=== PATIENT | male | born 1945 | race Caucasian/White ===

== ENCOUNTER 2019-05-25 15:44 | Inpatient (IN) | payer MEDICARE, OTHER ==
[~2019-05-25] VITALS: Ht 175.3 cm; Wt 101.2 kg
[~2019-05-25 15:44] MED LIST: CHOL100011 PO; HUM100VI6 SC; METF-162 PO; METH500T7 PO; NPH,100V SQ; NPH,100V5 SC; OXYC-302 PO; TAMS-11 PO
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
[2019-05-25] MEDS ORDERED: METH500T7 PO (16:05)
[2019-05-25] MEDS ORDERED: ATOR-2 PO (16:05)
[2019-05-25] MEDS ORDERED: GABA300C10 PO (16:06)
[2019-05-25] MEDS ORDERED: LISI2.5T PO (16:06)
[2019-05-25] MEDS ORDERED: INSU100C5 SQ-INSULIN (16:09)
--- NOTE | 2019-05-25 16:11 | NUR ---
BLOOD SUGAR IN ROUTE 444.
[2019-05-25 16:28] LABS: O2 FLOW ROOM AIR L/min
[2019-05-25] MEDS ORDERED: SODIUM CHLORIDE 0.9% 1,000ML IVBOLUS ONE ×2 (16:30→19:30)
[2019-05-25] MEDS ORDERED: INSULIN REGULAR 100 UNITS/ML, 3ML VIAL IVPush ONE (16:30)
[2019-05-25 16:35] LABS: BASOPHILS # (AUTO) 0.01 x10^3/uL (0-0.1); BASOPHILS % (AUTO) 0 % (0-1); EOSINOPHILS # (AUTO) 0.18 x10^3/uL (0-0.4); EOSINOPHILS % (AUTO) 2 % (1-7); LYMPHOCYTES # (AUTO) 0.99 x10^3/uL (1-3.4); LYMPHOCYTES % (AUTO) 14 % (22-44); MD NO; MEAN CORPUSCULAR HEMOGLOBIN 32.5 pg (27.5-34.5); MEAN CORPUSCULAR HGB CONC 34.1 g/dL (33.2-36.2); MEAN CORPUSCULAR VOLUME 95.3 fL (81-97); MEAN PLATELET VOLUME 7.9 fL (7.4-10.4); MONOCYTES # (AUTO) 0.38 x10^3/uL (0.2-0.8); MONOCYTES % (AUTO) 5 % (2-9); NEUTROPHILS # (AUTO) 5.79 x10^3/uL (1.8-6.8); NEUTROPHILS % (AUTO) 79 % (42-75); PLATELET COUNT 269 x10^3/uL (130-400); RED BLOOD COUNT 5.29 x10^6/uL (4.38-5.82); RED CELL DISTRIBUTION WIDTH 12.2 % (9.4-14.8)
[2019-05-25 16:40] LABS: ALANINE AMINOTRANSFERASE 24 U/L (12-78); ALBUMIN 2.9 g/dL (3.4-5.0); ANION GAP 5 mmol/L (5-15); CALCIUM 8.2 mg/dL (8.5-10.1); CHLORIDE 104 mmol/L (98-107); CREATININE 1.61 mg/dL (0.7-1.3)
[2019-05-25 16:42] LABS: ALKALINE PHOSPHATASE 79 U/L (45-117); BILIRUBIN,TOTAL 0.7 mg/dL (0.2-1.0); TOTAL PROTEIN 6.8 g/dL (6.4-8.2)
[2019-05-25 17:07] LABS: ACETONE, SERUM Negative (Negative)
[2019-05-25] MEDS ORDERED: INSULIN SINGLE DOSE, ER ONE (18:14)
[2019-05-25 18:22] LABS: MICROSCOPIC AUTO
[2019-05-25 18:28] LABS: CULTURE INDICATED? NO
[2019-05-25] MEDS ORDERED: AZITHROMYCIN 500 MG in SODIUM CHLORIDE 0.9% 250 ML IV ONE (18:39)
[2019-05-25] MEDS ORDERED: CEFTRIAXONE PMX 1GM/50ML 50 ML IVPB ONE (19:00)
--- NOTE | 2019-05-25 19:15 | NUR ---
REPORT OF PT FROM PATRICIO SEAY AND ASSUMING CARE OF PT AT THIS TIME.
[2019-05-25] MEDS ORDERED: CEFTRIAXONE PMX 1GM/50ML 50 ML ONE (19:25)
--- NOTE | 2019-05-25 19:25 | NUR ---
BC X 2 VERIFIED. IV ABX INITIATED PER MAY. REPORT OF PT TO PATRICIO VILLARREAL AT THIS TIME.
[2019-05-25] MEDS ORDERED: SODIUM CHLORIDE FLUSH 10ML SYR IVF ONE (19:30)
[2019-05-25] MEDS ORDERED: SODIUM CHLORIDE 0.9% 1,000 ML IV SCH (19:43)
[2019-05-25] MEDS ORDERED: hydrALAzine 20 MG/ML, 1ML IVPush PRN (20:00)
[2019-05-25] MEDS ORDERED: LIDODERM 5% PATCH TD PRN (20:00)
[2019-05-25] MEDS ORDERED: ENALAPRILAT 1.25 MG/ML, 2ML IVPush PRN (20:00)
[2019-05-25] MEDS ORDERED: DOCUSATE 100 MG CAPSULE PO PRN (20:00)
[2019-05-25] MEDS ORDERED: OXYcodone/APAP 5/325MG TABLET PO PRN (20:00)
[2019-05-25] MEDS ORDERED: LABETALOL 5MG/ML, 20ML IVPush PRN (20:00)
[2019-05-25] MEDS ORDERED: POLYETHYLENE GLYCOL 17 GM PACKET PO PRN (20:00)
[2019-05-25] MEDS: HEPARIN 5,000 UNITS/ML, 1ML SQ SCH (20:00)
[2019-05-25] MEDS ORDERED: ONDANSETRON 2MG/ML, 2ML IVPush PRN (20:00)
[2019-05-25] MEDS ORDERED: PROMETHAZINE 25 MG/ML, 1ML IM PRN (20:00)
[2019-05-25] MEDS ORDERED: BISACODYL 10 MG SUPP PR PRN (20:00)
--- NOTE | 2019-05-25 20:00 | NUR ---
PT FAMILY NOTIFIED OF PT FLOOR ASSIGNMENT. PT FAMILY VERBALIZES UNDERSTANDING OF PT ROOM ASSIGNMENT.
[2019-05-25 20:42] VITALS: BP 146/74
[2019-05-25] MEDS ORDERED: INSULIN NPH HUMAN 100 UNIT/ML, 3ML VIAL SQ-INSULIN SCH (21:00)
[2019-05-25] MEDS ORDERED: CEFTRIAXONE PMX 1GM/50ML 50 ML IV SCH (21:00)
[2019-05-25 21:41] LABS: RAPID INFLUENZA A Negative (Negative); RAPID INFLUENZA B Negative (Negative)
[2019-05-25] MEDS: ACETAMINOPHEN 325 MG TABLET PO PRN (21:59)
[2019-05-25] MEDS: DOXYCYCLINE 100 MG in DEXTROSE 5% 250 ML IV SCH (23:05)
[2019-05-25] MEDS: INSULIN LISPRO 100 UNITS/ML, PEN SQ-INSULIN SCH (23:07)
[2019-05-25] MEDS: ATORVASTATIN 80 MG TABLET PO SCH (23:09)
[2019-05-26] MEDS: INSULIN GLARGINE 100 UNITS/ML, PEN SQ-INSULIN SCH ×3 (00:23→22:38)
[2019-05-26 01:01] VITALS: BP 121/68
[2019-05-26] MEDS: HEPARIN 5,000 UNITS/ML, 1ML SQ SCH ×3 (04:00→22:37)
[2019-05-26 05:08] LABS: BASOPHILS # (AUTO) 0.04 x10^3/uL (0-0.1); BASOPHILS % (AUTO) 1 % (0-1); EOSINOPHILS # (AUTO) 0.24 x10^3/uL (0-0.4); EOSINOPHILS % (AUTO) 3 % (1-7); LYMPHOCYTES # (AUTO) 1.58 x10^3/uL (1-3.4); LYMPHOCYTES % (AUTO) 19 % (22-44); MD NO; MEAN CORPUSCULAR HEMOGLOBIN 32.6 pg (27.5-34.5); MEAN CORPUSCULAR HGB CONC 34.1 g/dL (33.2-36.2); MEAN CORPUSCULAR VOLUME 95.6 fL (81-97); MEAN PLATELET VOLUME 8.1 fL (7.4-10.4); MONOCYTES # (AUTO) 0.54 x10^3/uL (0.2-0.8); MONOCYTES % (AUTO) 7 % (2-9); NEUTROPHILS % (AUTO) 71 % (42-75); PLATELET COUNT 256 x10^3/uL (130-400); RED BLOOD COUNT 4.59 x10^6/uL (4.38-5.82); RED CELL DISTRIBUTION WIDTH 12.5 % (9.4-14.8)
[2019-05-26 05:13] LABS: ALBUMIN 2.3 g/dL (3.4-5.0); ANION GAP 6 mmol/L (5-15); CALCIUM 7.6 mg/dL (8.5-10.1); CHLORIDE 108 mmol/L (98-107)
[2019-05-26 05:18] LABS: ALANINE AMINOTRANSFERASE 17 U/L (12-78); ALKALINE PHOSPHATASE 62 U/L (45-117); BILIRUBIN,TOTAL 0.6 mg/dL (0.2-1.0); CREATININE 1.29 mg/dL (0.7-1.3); TOTAL PROTEIN 5.5 g/dL (6.4-8.2)
[2019-05-26] MEDS: GABAPENTIN 300 MG CAPSULE PO SCH (08:11)
[2019-05-26] MEDS: TAMSULOSIN 0.4 MG CAP.ER.24H PO SCH (08:11)
[2019-05-26] MEDS: METHOCARBAMOL 500 MG TABLET PO SCH (08:11)
[2019-05-26] MEDS: INSULIN LISPRO 100 UNITS/ML, PEN SQ-INSULIN SCH ×4 (08:18→22:39)
[2019-05-26] MEDS: DOXYCYCLINE 100 MG in DEXTROSE 5% 250 ML IV SCH ×2 (08:30→22:38)
[2019-05-26] MEDS: ACETAMINOPHEN 325 MG TABLET PO PRN (08:30)
[2019-05-26 09:20] VITALS: BP 107/62
[2019-05-26 14:00] VITALS: BP 110/62
[2019-05-26] MEDS: ATORVASTATIN 80 MG TABLET PO SCH (22:37)
[2019-05-26 22:48] VITALS: BP 148/80
[2019-05-27 02:15] VITALS: BP 144/79
[2019-05-27 06:00] LABS: BASOPHILS # (AUTO) 0.17 x10^3/uL (0-0.1); BASOPHILS % (AUTO) 2 % (0-1); EOSINOPHILS # (AUTO) 0.27 x10^3/uL (0-0.4); EOSINOPHILS % (AUTO) 4 % (1-7); LYMPHOCYTES # (AUTO) 1.78 x10^3/uL (1-3.4); LYMPHOCYTES % (AUTO) 25 % (22-44); MD NO; MEAN CORPUSCULAR HEMOGLOBIN 32.7 pg (27.5-34.5); MEAN CORPUSCULAR HGB CONC 34.2 g/dL (33.2-36.2); MEAN CORPUSCULAR VOLUME 95.6 fL (81-97); MEAN PLATELET VOLUME 7.9 fL (7.4-10.4); MONOCYTES # (AUTO) 0.57 x10^3/uL (0.2-0.8); MONOCYTES % (AUTO) 8 % (2-9); NEUTROPHILS # (AUTO) 4.37 x10^3/uL (1.8-6.8); NEUTROPHILS % (AUTO) 61 % (42-75); PLATELET COUNT 252 x10^3/uL (130-400); RED BLOOD COUNT 4.43 x10^6/uL (4.38-5.82); RED CELL DISTRIBUTION WIDTH 12.5 % (9.4-14.8)
[2019-05-27 06:12] LABS: ANION GAP 5 mmol/L (5-15); CALCIUM 7.5 mg/dL (8.5-10.1); CHLORIDE 108 mmol/L (98-107); CREATININE 1.53 mg/dL (0.7-1.3)
[2019-05-27 06:59] VITALS: BP 126/72
[2019-05-27] MEDS: INSULIN LISPRO 100 UNITS/ML, PEN SQ-INSULIN SCH ×3 (07:00→16:00)
[2019-05-27] MEDS: GABAPENTIN 300 MG CAPSULE PO SCH (07:35)
[2019-05-27] MEDS: TAMSULOSIN 0.4 MG CAP.ER.24H PO SCH (07:35)
[2019-05-27] MEDS: INSULIN GLARGINE 100 UNITS/ML, PEN SQ-INSULIN SCH (07:35)
[2019-05-27] MEDS: METHOCARBAMOL 500 MG TABLET PO SCH (07:35)
[2019-05-27] MEDS: HEPARIN 5,000 UNITS/ML, 1ML SQ SCH ×2 (07:35→15:00)
[2019-05-27] MEDS: DOXYCYCLINE 100 MG in DEXTROSE 5% 250 ML IV SCH (10:01)
[2019-05-27 12:07] VITALS: BP 157/91
== END 2019-05-27 17:28 | disposition home or self-care (01) | DRG 682 ==
LOC: SUATTDRO 19:19 → ED 20:02 → EDIP 20:16 → 3N 20:37
PROVIDERS: ADMIT Internal Medicine; ATTEND Family Medicine
DX: N17.0 Acute kidney failure with tubular necrosis (principal); J18.9 Pneumonia, unspecified organism; G92 Toxic encephalopathy; E87.1 Hypo-osmolality and hyponatremia; E11.40 Type 2 diabetes mellitus with diabetic neuropathy, unspecified; E11.65 Type 2 diabetes mellitus with hyperglycemia; E78.5 Hyperlipidemia, unspecified; F17.210 Nicotine dependence, cigarettes, uncomplicated; F43.10 Post-traumatic stress disorder, unspecified; I44.7 Left bundle-branch block, unspecified; K42.9 Umbilical hernia without obstruction or gangrene; N40.0 Benign prostatic hyperplasia without lower urinary tract symptoms; W18.30XA Fall on same level, unspecified, initial encounter; Z83.3 Family history of diabetes mellitus; Z79.4 Long term (current) use of insulin; Z87.442 Personal history of urinary calculi; Z89.511 Acquired absence of right leg below knee; Y92.89 Other specified places as the place of occurrence of the external cause; Z88.5 Allergy status to narcotic agent
CPT/HCPCS: 36415; 70450; 71045; 80048; 80053; 81001; 82010; 82803; 82962; 83036; 83605; 84145; 85025; 87040; 87400; 87486; 87581; 87633; 87798; 93005; 93306; 96374; G0378; J0696; J1644; J1815; J7060; J7030

== ENCOUNTER 2019-06-15 03:40 | Inpatient (IN) | payer OTHER ==
[~2019-06-15] VITALS: Ht 170.2 cm; Wt 102.3 kg
[2019-06-15] MEDS: SODIUM CHLORIDE 0.9% 1,000 ML IV SCH ×3 (02:25→16:17)
[~2019-06-15 03:40] MED LIST changes: +ATOR-2 PO; +GABA300C10 PO; +INSU100C5 SQ-INSULIN; +LISI2.5T PO
--- NOTE | 2019-06-15 04:12 | NUR ---
C/O N/V/D, PLACED VITALS SIGNS MONITORS, FALL PRECAUTIONS IN PLACE, CALL LIGHT PLACED WITHIN REACH.
--- NOTE | 2019-06-15 04:16 | NUR ---
ERP AT BEDSIDE FOR EVAL.
[2019-06-15] MEDS ORDERED: ONDANSETRON 2MG/ML, 2ML ONE ×3 (04:26→05:44)
[2019-06-15 04:28] LABS: BASOPHILS % (AUTO) 0 % (0-1); EOSINOPHILS # (AUTO) 0.15 x10^3/uL (0-0.4); EOSINOPHILS % (AUTO) 2 % (1-7); LYMPHOCYTES # (AUTO) 1.18 x10^3/uL (1-3.4); LYMPHOCYTES % (AUTO) 12 % (22-44); MD NO; MEAN CORPUSCULAR HEMOGLOBIN 32.6 pg (27.5-34.5); MEAN CORPUSCULAR VOLUME 95.7 fL (81-97); MEAN PLATELET VOLUME 8.4 fL (7.4-10.4); MONOCYTES # (AUTO) 0.54 x10^3/uL (0.2-0.8); MONOCYTES % (AUTO) 6 % (2-9); NEUTROPHILS # (AUTO) 8.02 x10^3/uL (1.8-6.8); NEUTROPHILS % (AUTO) 81 % (42-75); PLATELET COUNT 245 x10^3/uL (130-400); RED CELL DISTRIBUTION WIDTH 12.7 % (9.4-14.8)
[2019-06-15] MEDS ORDERED: SODIUM CHLORIDE 0.9% 1,000ML IVBOLUS ONE ×2 (04:30→05:00)
[2019-06-15] MEDS ORDERED: ONDANSETRON 2MG/ML, 2ML IVPush ONE (04:30)
[2019-06-15] MEDS ORDERED: HYDROmorphone 1 MG/ML, 1ML INJ IVPush PRN (04:30)
[2019-06-15 04:40] LABS: ALANINE AMINOTRANSFERASE 28 U/L (12-78); ANION GAP 6 mmol/L (5-15); CHLORIDE 99 mmol/L (98-107); CREATININE 1.78 mg/dL (0.7-1.3)
--- NOTE | 2019-06-15 04:42 | NUR ---
MEDICATED PER MAR, PT DENIES PAIN AT THIS TIME, TECH AT BEDSIDE FOR EKG.
[2019-06-15 04:45] LABS: ALKALINE PHOSPHATASE 88 U/L (45-117); BILIRUBIN,TOTAL 0.7 mg/dL (0.2-1.0); TOTAL PROTEIN 7.3 g/dL (6.4-8.2)
--- NOTE | 2019-06-15 04:51 | NUR ---
aiyana from lab on telephone with critical lab results troponin 1.59, glucose 529, erp updated
--- NOTE | 2019-06-15 04:53 | NUR ---
pg code cardiac @8355 pg cards @5083
[2019-06-15] MEDS ORDERED: INSULIN SINGLE DOSE, ER ONE (04:57)
[2019-06-15] MEDS ORDERED: ASPIRIN 81 MG TABLET CHEW PO ONE (05:00)
[2019-06-15] MEDS ORDERED: INSULIN REGULAR 100 UNITS/ML, 3ML VIAL IVPush ONE (05:00)
[2019-06-15] MEDS ORDERED: HYDROmorphone 1 MG/ML, 1ML INJ ONE (05:02)
--- NOTE | 2019-06-15 05:15 | NUR ---
ASSUMED CAREOF PT IN T3, CODE CARDIAC CALLED. PT STABLE WITH PAIN MEDS GIVEN NOW, PT WAS CO 25/10 WITH NAUSEA AND VOMITING,, DECREASED WITH PAIN MEDS, ASA GIVEN
--- NOTE | 2019-06-15 05:18 | NUR ---
PT HAS WHEELCHAIR, ONE SHOE,PANTS,SHIRT, TTO GO WITH PT, [facility]LET WE[facility] WITH HOME.
[2019-06-15] MEDS ORDERED: VERAPAMIL 2.5 MG/ML, 2ML ONE (05:29)
[2019-06-15] MEDS ORDERED: MIDAZOLAM 1 MG/ML, 2ML ONE (05:29)
[2019-06-15] MEDS ORDERED: FENTANYL PF 250 MCG/5ML ONE (05:29)
[2019-06-15] MEDS ORDERED: LIDOCAINE-MPF 1%, 5ML ONE (05:30)
[2019-06-15] MEDS ORDERED: BIVALIRUDIN 250 MG ONE (05:30)
[2019-06-15] MEDS ORDERED: HEPARIN 1,000 UNITS/ML, 10ML ONE (05:30)
--- NOTE | 2019-06-15 05:30 | NUR ---
late entry, pt taken to pipelines laborer, all belongings take to [facility] by kaci lopez. bao with to home.
[2019-06-15] MEDS ORDERED: LIDOCAINE 1%, 20ML ONE (05:50)
[2019-06-15] MEDS ORDERED: ASPIRIN 81 MG TABLET CHEW ONE (05:57)
[2019-06-15] MEDS ORDERED: CLOPIDOGREL 300 MG TABLET ONE (06:05)
[2019-06-15] MEDS ORDERED: NALOXONE 0.4 MG/ML, 1ML ONE (06:26)
[2019-06-15] MEDS ORDERED: TICAGRELOR 90 MG TABLET ONE (06:26)
[2019-06-15] MEDS ORDERED: FLUMAZENIL 0.1 MG/1 ML, 5ML ONE (06:26)
[2019-06-15] MEDS ORDERED: BIVALIRUDIN 250 MG in SODIUM CHLORIDE 0.9% 50 ML IV SCH (06:31)
[2019-06-15] MEDS ORDERED: ASPIRIN 325 MG TABLET EC ONE (06:32)
[2019-06-15 06:45] VITALS: BP 120/85
[2019-06-15] MEDS ORDERED: METOPROLOL TARTRATE 25 MG TAB PO ONE (07:00)
[2019-06-15] MEDS: TICAGRELOR 90 MG TABLET PO SCH ×2 (09:59→20:53)
[2019-06-15] MEDS: ASPIRIN 81 MG TABLET EC PO SCH (09:59)
[2019-06-15 15:29] LABS: MICROSCOPIC AUTO
[2019-06-15 15:31] LABS: CULTURE INDICATED? NO
[2019-06-15] MEDS ORDERED: OXYcodone/APAP 5/325MG TABLET ONE (15:37)
[2019-06-15 16:06] LABS: FREE T4 (FREE THYROXINE) 0.83 ng/dL (0.76-1.46)
[2019-06-15] MEDS: INSULIN REGULAR 100 UNITS/ML, 3ML VIAL SQ-INSULIN SCH ×2 (16:16→20:54)
[2019-06-15 17:35] LABS: CREATININE,URINE RANDOM 65.7 mg/dL
[2019-06-15] MEDS: ATORVASTATIN 80 MG TABLET PO SCH (20:53)
[2019-06-15] MEDS ORDERED: INSULIN GLARGINE 100 UNITS/ML, PEN SQ-INSULIN SCH (21:00)
[2019-06-16] MEDS: SODIUM CHLORIDE 0.9% 1,000 ML IV SCH ×2 (00:45→10:25)
[2019-06-16] MEDS: OXYcodone/APAP 5/325MG TABLET PO PRN ×3 (01:16→18:18)
[2019-06-16] MEDS: ONDANSETRON 2MG/ML, 2ML IVPush PRN ×3 (04:26→19:50)
[2019-06-16 04:54] VITALS: BP 115/78
[2019-06-16 05:27] LABS: ANION GAP 8 mmol/L (5-15); CALCIUM 8.7 mg/dL (8.5-10.1); CHLORIDE 110 mmol/L (98-107)
[2019-06-16 05:28] LABS: CREATININE 1.57 mg/dL (0.7-1.3)
[2019-06-16] MEDS ORDERED: LEVOTHYROXINE 50 MCG TABLET ONE (06:23)
[2019-06-16] MEDS: LEVOTHYROXINE 50 MCG TABLET PO SCH (06:25)
[2019-06-16] MEDS: INSULIN REGULAR 100 UNITS/ML, 3ML VIAL SQ-INSULIN SCH ×4 (06:25→20:19)
[2019-06-16] MEDS: TICAGRELOR 90 MG TABLET PO SCH ×2 (08:02→19:50)
[2019-06-16] MEDS: ASPIRIN 81 MG TABLET EC PO SCH (08:03)
[2019-06-16] MEDS: INSULIN GLARGINE 100 UNITS/ML, PEN SQ-INSULIN SCH ×2 (08:39→20:19)
[2019-06-16] MEDS: LOSARTAN 25MG TABLET PO SCH (09:45)
[2019-06-16 10:14] VITALS: BP 115/73
[2019-06-16 16:10] VITALS: BP 116/80
[2019-06-16] MEDS: CEPHALEXIN 500 MG CAPSULE PO SCH (18:17)
[2019-06-16] MEDS: MUPIROCIN OINT 2%, 22GM TP SCH (18:19)
[2019-06-16] MEDS: ATORVASTATIN 80 MG TABLET PO SCH (19:50)
[2019-06-17] MEDS: CEPHALEXIN 500 MG CAPSULE PO SCH ×3 (01:00→18:17)
[2019-06-17 02:24] VITALS: BP 102/68
[2019-06-17] MEDS: OXYcodone/APAP 5/325MG TABLET PO PRN ×2 (03:06→08:11)
[2019-06-17 06:08] LABS: ANION GAP 7 mmol/L (5-15); CALCIUM 8.7 mg/dL (8.5-10.1); CHLORIDE 109 mmol/L (98-107); CREATININE 1.83 mg/dL (0.7-1.3)
[2019-06-17] MEDS: LEVOTHYROXINE 50 MCG TABLET PO SCH (06:24)
[2019-06-17] MEDS: MUPIROCIN OINT 2%, 22GM TP SCH ×5 (06:24→21:13)
[2019-06-17] MEDS: INSULIN REGULAR 100 UNITS/ML, 3ML VIAL SQ-INSULIN SCH ×4 (07:00→21:00)
[2019-06-17] MEDS ORDERED: ROCURONIUM 10MG/ML,5ML ONE (08:00)
[2019-06-17 08:10] VITALS: BP 107/72
[2019-06-17] MEDS: TICAGRELOR 90 MG TABLET PO SCH ×2 (08:11→21:07)
[2019-06-17] MEDS: ASPIRIN 81 MG TABLET EC PO SCH (08:11)
[2019-06-17] MEDS: INSULIN GLARGINE 100 UNITS/ML, PEN SQ-INSULIN SCH ×2 (08:12→21:15)
[2019-06-17] MEDS: LOSARTAN 25MG TABLET PO SCH (08:12)
[2019-06-17] MEDS: CARVEDILOL 3.125 MG TABLET PO SCH ×2 (09:09→18:00)
[2019-06-17] MEDS: ONDANSETRON 2MG/ML, 2ML IVPush PRN (10:35)
[2019-06-17] MEDS ORDERED: FENTANYL PF 100 MCG/2ML ONE (10:55)
[2019-06-17] MEDS ORDERED: MIDAZOLAM 1 MG/ML, 5ML ONE (10:55)
[2019-06-17] MEDS ORDERED: LIDOCAINE-MPF 1%, 5ML ONE (10:56)
[2019-06-17] MEDS ORDERED: BIVALIRUDIN 250 MG ONE (10:56)
[2019-06-17] MEDS ORDERED: TICAGRELOR 90 MG TABLET ONE (10:56)
[2019-06-17] MEDS ORDERED: VERAPAMIL 2.5 MG/ML, 2ML ONE (10:56)
[2019-06-17] MEDS ORDERED: HEPARIN 1,000 UNITS/ML, 10ML ONE (10:56)
[2019-06-17 10:59] LABS: MEAN CORPUSCULAR HEMOGLOBIN 32.8 pg (27.5-34.5); MEAN CORPUSCULAR HGB CONC 33.8 g/dL (33.2-36.2); MEAN CORPUSCULAR VOLUME 96.9 fL (81-97); MEAN PLATELET VOLUME 7.7 fL (7.4-10.4); PLATELET COUNT 239 x10^3/uL (130-400); RED BLOOD COUNT 4.07 x10^6/uL (4.38-5.82)
[2019-06-17] MEDS ORDERED: HYDROmorphone 1 MG/ML, 1ML INJ IV ONE (11:00)
[2019-06-17] MEDS ORDERED: ONDANSETRON 2MG/ML, 2ML IVPush ONE (11:00)
[2019-06-17 11:06] LABS: ANION GAP 5 mmol/L (5-15); CALCIUM 8.4 mg/dL (8.5-10.1); CHLORIDE 108 mmol/L (98-107); CREATININE 2.05 mg/dL (0.7-1.3)
[2019-06-17 11:11] LABS: BASOPHILS # (AUTO) 0.11 x10^3/uL (0-0.1); BASOPHILS % (AUTO) 1 % (0-1); EOSINOPHILS # (AUTO) 0.11 x10^3/uL (0-0.4); EOSINOPHILS % (AUTO) 1 % (1-7); LYMPHOCYTES # (AUTO) 1.01 x10^3/uL (1-3.4); LYMPHOCYTES % (AUTO) 8 % (22-44); MD SCAN; MONOCYTES # (AUTO) 1.18 x10^3/uL (0.2-0.8); MONOCYTES % (AUTO) 10 % (2-9); NEUTROPHILS # (AUTO) 9.87 x10^3/uL (1.8-6.8); NEUTROPHILS % (AUTO) 80 % (42-75)
[2019-06-17] MEDS: PROPOFOL 100 ML IV PRN ×2 (11:30→19:34)
[2019-06-17] MEDS ORDERED: PROPOFOL 100 ML IV ONE ×2 (11:32→15:07)
[2019-06-17] MEDS ORDERED: PHENYLEPHRINE 10 MG/ML ONE ×3 (11:49→11:56)
[2019-06-17] MEDS ORDERED: SUCCINYLCHOLINE 20 MG/ML, 10ML ONE (11:54)
[2019-06-17] MEDS ORDERED: PROPOFOL 10 MG/ML, 20ML ONE (11:54)
[2019-06-17] MEDS: NOREPINEPHRINE 8 MG in SODIUM CHLORIDE 0.9% 242 ML IV PRN (12:52)
[2019-06-17 13:02] LABS: FIO2 100 %
[2019-06-17] MEDS: AMPICILLIN/SULBACTAM 3 GM in SODIUM CHLORIDE 0.9% 100 ML IV SCH ×2 (13:51→21:13)
[2019-06-17] MEDS ORDERED: SENNA/DOCUSATE TABLET NG PRN (14:30)
[2019-06-17] MEDS ORDERED: PHARMACY MAY ADJ FOR RENAL FX MC SCH (14:30)
[2019-06-17] MEDS ORDERED: BISACODYL 10 MG SUPP PR PRN (14:30)
[2019-06-17] MEDS ORDERED: LACTULOSE 20 GM/30 ML UDC NG PRN (14:30)
[2019-06-17] MEDS ORDERED: SENNA 176 MG/5 ML ORAL SOL NG PRN (14:30)
[2019-06-17] MEDS ORDERED: LIDOCAINE-MPF 1%, 2ML ENDO PRN (14:30)
[2019-06-17] MEDS: ALBUTEROL/IPRATROPIUM 2.5MG/0.5MG, 3 ML NPPB SCH ×3 (15:35→23:09)
[2019-06-17] MEDS ORDERED: PROPOFOL 100 ML IV PRN (16:00)
[2019-06-17 18:39] LABS: D-DIMER (DIC) 1.46 ug/mlFEU (0.00-0.52); PROTIME 10.1 Seconds (9.6-11.5)
[2019-06-17] MEDS ORDERED: ACETAMINOPHEN 650 MG/20.3 ML UDC PO PRN (21:00)
[2019-06-17] MEDS: ATORVASTATIN 80 MG TABLET PO SCH (21:07)
[2019-06-18] MEDS: CEPHALEXIN 500 MG CAPSULE PO SCH ×3 (00:51→17:04)
[2019-06-18] MEDS: PROPOFOL 100 ML IV PRN (01:03)
[2019-06-18] MEDS: INSULIN REGULAR 100 UNITS/ML, 3ML VIAL SQ-INSULIN SCH ×5 (03:00→21:00)
[2019-06-18] MEDS: ALBUTEROL/IPRATROPIUM 2.5MG/0.5MG, 3 ML NPPB SCH (03:09)
[2019-06-18 03:31] LABS: ANION GAP 10 mmol/L (5-15); CALCIUM 8.2 mg/dL (8.5-10.1); CHLORIDE 106 mmol/L (98-107)
[2019-06-18 03:32] LABS: CREATININE 2.29 mg/dL (0.7-1.3); MEAN CORPUSCULAR HEMOGLOBIN 32.5 pg (27.5-34.5); MEAN CORPUSCULAR HGB CONC 33.9 g/dL (33.2-36.2); MEAN CORPUSCULAR VOLUME 95.9 fL (81-97); MEAN PLATELET VOLUME 8.2 fL (7.4-10.4); PLATELET COUNT 268 x10^3/uL (130-400); RED BLOOD COUNT 4.05 x10^6/uL (4.38-5.82)
[2019-06-18 04:00] VITALS: BP 109/68
[2019-06-18 04:11] LABS: BASOPHILS # (AUTO) 0.04 x10^3/uL (0-0.1); BASOPHILS % (AUTO) 0 % (0-1); EOSINOPHILS # (AUTO) 0.04 x10^3/uL (0-0.4); EOSINOPHILS % (AUTO) 0 % (1-7); LYMPHOCYTES # (AUTO) 0.68 x10^3/uL (1-3.4); LYMPHOCYTES % (AUTO) 6 % (22-44); MD SCAN; MONOCYTES # (AUTO) 0.91 x10^3/uL (0.2-0.8); MONOCYTES % (AUTO) 7 % (2-9); NEUTROPHILS # (AUTO) 10.81 x10^3/uL (1.8-6.8); NEUTROPHILS % (AUTO) 87 % (42-75)
[2019-06-18] MEDS: AMPICILLIN/SULBACTAM 3 GM in SODIUM CHLORIDE 0.9% 100 ML IV SCH ×3 (05:42→21:22)
[2019-06-18] MEDS: LEVOTHYROXINE 50 MCG TABLET PO SCH (05:42)
[2019-06-18] MEDS: CARVEDILOL 3.125 MG TABLET PO SCH ×2 (05:43→17:04)
[2019-06-18] MEDS: NOREPINEPHRINE 8 MG in SODIUM CHLORIDE 0.9% 242 ML IV PRN (05:44)
[2019-06-18] MEDS: MUPIROCIN OINT 2%, 22GM TP SCH ×4 (05:48→21:22)
[2019-06-18] MEDS: LOSARTAN 25MG TABLET PO SCH (07:53)
[2019-06-18] MEDS: ASPIRIN 81 MG TABLET EC PO SCH (08:33)
[2019-06-18] MEDS: TICAGRELOR 90 MG TABLET PO SCH ×2 (08:33→21:22)
[2019-06-18] MEDS ORDERED: ZIPRASIDONE 20 MG INJ IM PRN (09:00)
[2019-06-18] MEDS: INSULIN GLARGINE 100 UNITS/ML, PEN SQ-INSULIN SCH ×2 (11:00→21:00)
[2019-06-18] MEDS ORDERED: [UNRECOGNIZED DRUG - REMARK] MC PRN (16:30)
[2019-06-18] MEDS: ATORVASTATIN 80 MG TABLET PO SCH (21:22)
[2019-06-18] MEDS ORDERED: INSULIN GLARGINE 100 UNITS/ML, PEN SQ-INSULIN ONE (21:30)
[2019-06-19] MEDS: CEPHALEXIN 500 MG CAPSULE PO SCH ×4 (00:28→23:18)
[2019-06-19] MEDS: INSULIN REGULAR 100 UNITS/ML, 3ML VIAL SQ-INSULIN SCH ×5 (01:03→20:09)
[2019-06-19] MEDS: OXYcodone/APAP 5/325MG TABLET PO PRN ×3 (02:03→20:02)
[2019-06-19 04:00] VITALS: BP 85/48
[2019-06-19 04:26] LABS: MEAN CORPUSCULAR HEMOGLOBIN 32.6 pg (27.5-34.5); MEAN CORPUSCULAR HGB CONC 33.7 g/dL (33.2-36.2); MEAN CORPUSCULAR VOLUME 96.7 fL (81-97); MEAN PLATELET VOLUME 7.8 fL (7.4-10.4); PLATELET COUNT 277 x10^3/uL (130-400); RED BLOOD COUNT 3.71 x10^6/uL (4.38-5.82)
[2019-06-19 04:36] LABS: ANION GAP 7 mmol/L (5-15); CALCIUM 7.9 mg/dL (8.5-10.1); CHLORIDE 108 mmol/L (98-107); CREATININE 2.29 mg/dL (0.7-1.3)
[2019-06-19 05:05] LABS: MD YES
[2019-06-19 05:07] LABS: BAND#(MANUAL) 0.19 x10^3/uL; BANDS%(MANUAL) 2 % (0-7); EOS% (MANUAL) 1 % (1-7); LYMPH#(MANUAL) 0.77 x10^3/uL (1-3.4); LYMPHS% (MANUAL) 8 % (22-44); MONOS#(MANUAL) 0.38 x10^3/uL (0.3-2.7); MONOS% (MANUAL) 4 % (2-9); SEG#(MANUAL) 8.16 x10^3/uL (1.8-6.8); SEGS% (MANUAL) 85 % (42-75)
[2019-06-19 05:08] LABS: <PLATELET ESTIMATE> ADEQUATE; <PLT MORPHOLOGY> NORMAL PLT MORPH; <RBC MORPHOLOGY> NORMAL
[2019-06-19] MEDS: AMPICILLIN/SULBACTAM 3 GM in SODIUM CHLORIDE 0.9% 100 ML IV SCH ×3 (05:15→20:01)
[2019-06-19] MEDS: LEVOTHYROXINE 50 MCG TABLET PO SCH (06:05)
[2019-06-19] MEDS: CARVEDILOL 3.125 MG TABLET PO SCH ×2 (06:05→17:30)
[2019-06-19] MEDS: MUPIROCIN OINT 2%, 22GM TP SCH ×4 (06:05→20:02)
[2019-06-19] MEDS: TICAGRELOR 90 MG TABLET PO SCH ×2 (09:00→20:01)
[2019-06-19] MEDS: ASPIRIN 81 MG TABLET EC PO SCH (09:00)
[2019-06-19] MEDS: MIDODRINE 5 MG TABLET PO SCH ×3 (09:00→20:01)
[2019-06-19] MEDS: INSULIN GLARGINE 100 UNITS/ML, PEN SQ-INSULIN SCH ×2 (09:00→20:10)
[2019-06-19] MEDS: LOSARTAN 25MG TABLET PO SCH (09:00)
--- NOTE | 2019-06-19 11:51 | NUR ---
REC: D/C to SNF; NPO with short-term alternative means of nutrition/hydration and medication Addendum: 06/19/19 at 1152 by Asya COBB Amended: Links added.
--- NOTE | 2019-06-19 14:10 | NUR ---
TF goal if needed: PROMOTE @ 80ML/HR
[2019-06-19] MEDS ORDERED: ACETAMINOPHEN 650 MG/20.3 ML UDC NG PRN (17:42)
[2019-06-19] MEDS: ATORVASTATIN 80 MG TABLET PO SCH (20:02)
[2019-06-19 22:30] VITALS: BP 92/52
[2019-06-20] MEDS: AMPICILLIN/SULBACTAM 3 GM in SODIUM CHLORIDE 0.9% 100 ML IV SCH (03:54)
[2019-06-20] MEDS: CARVEDILOL 3.125 MG TABLET PO SCH (03:54)
[2019-06-20] MEDS: OXYcodone/APAP 5/325MG TABLET PO PRN ×2 (04:09→10:45)
[2019-06-20] MEDS: LEVOTHYROXINE 50 MCG TABLET PO SCH (04:09)
[2019-06-20] MEDS ORDERED: LORazepam 2 MG/ML, 1ML ONE (04:19)
[2019-06-20 04:30] VITALS: BP 109/58
[2019-06-20] MEDS ORDERED: LORazepam 2 MG/ML, 1ML IVPush PRN ×3 (04:30→12:30)
[2019-06-20] MEDS: INSULIN REGULAR 100 UNITS/ML, 3ML VIAL SQ-INSULIN SCH (05:13)
[2019-06-20] MEDS: MUPIROCIN OINT 2%, 22GM TP SCH ×2 (05:14→09:51)
[2019-06-20 05:28] LABS: CHLORIDE 107 mmol/L (98-107)
[2019-06-20 05:35] LABS: BASOPHILS # (AUTO) 0.08 x10^3/uL (0-0.1); BASOPHILS % (AUTO) 1 % (0-1); EOSINOPHILS # (AUTO) 0.28 x10^3/uL (0-0.4); EOSINOPHILS % (AUTO) 3 % (1-7); LYMPHOCYTES # (AUTO) 0.84 x10^3/uL (1-3.4); LYMPHOCYTES % (AUTO) 8 % (22-44); MD NO; MEAN CORPUSCULAR HEMOGLOBIN 32.5 pg (27.5-34.5); MEAN CORPUSCULAR HGB CONC 33.6 g/dL (33.2-36.2); MEAN CORPUSCULAR VOLUME 96.8 fL (81-97); MEAN PLATELET VOLUME 7.9 fL (7.4-10.4); MONOCYTES # (AUTO) 0.84 x10^3/uL (0.2-0.8); MONOCYTES % (AUTO) 8 % (2-9); NEUTROPHILS # (AUTO) 8.98 x10^3/uL (1.8-6.8); NEUTROPHILS % (AUTO) 82 % (42-75); PLATELET COUNT 333 x10^3/uL (130-400); RED BLOOD COUNT 4.02 x10^6/uL (4.38-5.82); RED CELL DISTRIBUTION WIDTH 13.2 % (9.4-14.8)
[2019-06-20 05:37] LABS: ANION GAP 8 mmol/L (5-15); CALCIUM 8.5 mg/dL (8.5-10.1); CREATININE 2.63 mg/dL (0.7-1.3)
[2019-06-20] MEDS ORDERED: FUROSEMIDE 40 MG/4 ML IV ONE (06:30)
[2019-06-20] MEDS ORDERED: ASPIRIN 81 MG TABLET CHEW NG SCH (09:00)
[2019-06-20] MEDS: LOSARTAN 25MG TABLET PO SCH (09:00)
[2019-06-20] MEDS: CEPHALEXIN 500 MG CAPSULE PO SCH (09:39)
[2019-06-20] MEDS: MIDODRINE 5 MG TABLET PO SCH (09:40)
[2019-06-20] MEDS: TICAGRELOR 90 MG TABLET PO SCH (09:41)
[2019-06-20] MEDS: INSULIN GLARGINE 100 UNITS/ML, PEN SQ-INSULIN SCH (09:46)
[2019-06-20] MEDS ORDERED: ALBUTEROL SULFATE 2.5 MG/3 ML NPPB PRN (11:00)
[2019-06-20] MEDS ORDERED: ONDANSETRON 2MG/ML, 2ML IVPush PRN ×2 (11:30→12:30)
[2019-06-20] MEDS ORDERED: ZIPRASIDONE 20 MG INJ IM ONE (11:30)
[2019-06-20] MEDS ORDERED: SCOPOLAMINE 1MG PATCH TD PRN ×2 (11:30→12:30)
[2019-06-20] MEDS ORDERED: INSULIN REGULAR 100 UNITS/ML, 3ML VIAL SQ-INSULIN SCH (13:00)
[2019-06-20] MEDS: HYDROmorphone/PF 20 MG in SODIUM CHLORIDE 0.9% 98 ML IV PRN (13:53)
[2019-06-20] MEDS ORDERED: AMPICILLIN/SULBACTAM 3 GM in SODIUM CHLORIDE 0.9% 100 ML IV SCH (16:00)
[2019-06-20] MEDS: ATROPINE OPHTH SOLN 1%, 5ML PO PRN (23:50)
[2019-06-21] MEDS: HYDROmorphone/PF 20 MG in SODIUM CHLORIDE 0.9% 98 ML IV PRN (07:07)
[2019-06-21] MEDS: ATROPINE OPHTH SOLN 1%, 5ML PO PRN (20:15)
== END 2019-06-22 08:00 | disposition expired | DRG 246 ==
LOC: ED 04:17 → EDIP 06:33 → CCU 06:43 → 5SO 06-16 10:10 → CCU 06-17 10:59 → 3N 06-20 13:15
PROVIDERS: ADMIT Internal Medicine; ATTEND Internal Medicine
PROC: 027034Z Dilation of Coronary Artery, One Artery with Drug-eluting Intraluminal Device, Percutaneous Approach (ICD-10-PCS; principal; 2019-06-15)
PROC: 4A023N7 Measurement of Cardiac Sampling and Pressure, Left Heart, Percutaneous Approach (ICD-10-PCS; 2019-06-17)
PROC: B2111ZZ Fluoroscopy of Multiple Coronary Arteries using Low Osmolar Contrast (ICD-10-PCS; 2019-06-17)
PROC: 5A1935Z Respiratory Ventilation, Less than 24 Consecutive Hours (ICD-10-PCS; 2019-06-17)
PROC: 0BH17EZ Insertion of Endotracheal Airway into Trachea, Via Natural or Artificial Opening (ICD-10-PCS; 2019-06-17)
PROC: 5A09357 Assistance with Respiratory Ventilation, Less than 24 Consecutive Hours, Continuous Positive Airway Pressure (ICD-10-PCS; 2019-06-20)
DX: I21.09 ST elevation (STEMI) myocardial infarction involving other coronary artery of anterior wall (principal); J96.01 Acute respiratory failure with hypoxia; I50.41 Acute combined systolic (congestive) and diastolic (congestive) heart failure; N17.9 Acute kidney failure, unspecified; Z99.11 Dependence on respirator [ventilator] status; G93.40 Encephalopathy, unspecified; I13.0 Hypertensive heart and chronic kidney disease with heart failure and stage 1 through stage 4 chronic kidney disease, or unspecified chronic kidney disease; E78.5 Hyperlipidemia, unspecified; Z90.49 Acquired absence of other specified parts of digestive tract; G89.29 Other chronic pain; M54.9 Dorsalgia, unspecified; E86.0 Dehydration; E10.65 Type 1 diabetes mellitus with hyperglycemia; E10.40 Type 1 diabetes mellitus with diabetic neuropathy, unspecified; F17.210 Nicotine dependence, cigarettes, uncomplicated; I25.10 Atherosclerotic heart disease of native coronary artery without angina pectoris; Z89.511 Acquired absence of right leg below knee; F43.10 Post-traumatic stress disorder, unspecified; E66.9 Obesity, unspecified; I95.9 Hypotension, unspecified; I87.8 Other specified disorders of veins; I45.9 Conduction disorder, unspecified; E03.9 Hypothyroidism, unspecified; N18.3 Chronic kidney disease, stage 3 (moderate); L03.011 Cellulitis of right finger; N40.0 Benign prostatic hyperplasia without lower urinary tract symptoms; E10.22 Type 1 diabetes mellitus with diabetic chronic kidney disease; E10.51 Type 1 diabetes mellitus with diabetic peripheral angiopathy without gangrene; Z51.5 Encounter for palliative care; Z87.442 Personal history of urinary calculi; Z83.3 Family history of diabetes mellitus; Z88.5 Allergy status to narcotic agent; Z68.35 Body mass index [BMI] 35.0-35.9, adult
CPT/HCPCS: 36415; 36600; 74018; 93458; 96361; 96374; 96375; 99291; J3490; 71045; 80048; 80053; 81001; 82533; 82570; 82803; 82962; 83690; 83735; 83880; 84300; 84439; 84443; 84478; 84484; 85025; 85049; 85379; 85384; 85610; 85730; 87070; 87077; 87081; 87186; 87205; 93005; 93306; 93308; 93321; 93325; 94002; 94003; 94150; 94640; 94660; 99156; C1769; C1894; G0378; J0295; J0583; J1170; J1644; J1815; J1940; J2250; J2310; J2405; J2704; J3010; J3486; J0330; J2060; J2370; J7030; J7050; Q9967